=== PATIENT | male | born 1985 | race Caucasian/White ===

== ENCOUNTER 2016-10-17 14:09 | Day surgery (SDC) | payer OTHER ==
[2016-10-17] MEDS ORDERED: BUPIVACAINE 0.5% 30 ML SDV ONE (15:21)
[2016-10-17] MEDS ORDERED: TRIAMCINOLONE ACETONIDE 200 MG/5 ML MDV IM ONE (15:21)
[2016-10-17] MEDS ORDERED: IOPAMIDOL (ISOVUE-M 300) 15 ML VIAL ONE (15:21)
[2016-10-17] MEDS ORDERED: LIDOCAINE 1% 300 MG/30 ML SDV ONE (15:21)
== END 2016-10-17 15:40 | disposition home or self-care (01) ==
LOC: FIMAGING 14:09
PROVIDERS: ATTEND Radiology Diagnostic Radiology
DX: M54.17 Radiculopathy, lumbosacral region (principal)
CPT/HCPCS: J3301; Q9967